=== PATIENT | female | born 1955 | race Caucasian/White ===

== ENCOUNTER 2016-10-11 21:23 | Observation (INO) | payer BC ==
[~2016-10-11] VITALS: Ht 154.9 cm; Wt 57.0 kg
[2016-10-11 21:53] LABS: HEMATOCRIT 38.9 % (36.0-46.0); MCH 29.6 PG (29.0-34.0); MCHC 34.7 G/DL (30.0-36.0); MCV 85.3 FL (83-99); MEAN PLAT.VOLUME 10.1 uM^3 (9.5-12.4); PLATELET COUNT 270 K/uL (156-360); RBC DIS.WIDTH-CV 12.7 % (11.8-14.6); RBC DIS.WIDTH-SD 39.2 % (39-53); RED BLOOD COUNT 4.56 M/uL (3.80-5.20); WHITE BLOOD COUNT 8.1 K/uL (4.1-10.2)
[2016-10-11 22:05] LABS: CHLORIDE 104 mEq/L (99-109); POTASSIUM 3.6 mEq/L (3.7-5.4); SODIUM 138 mEq/L (136-147)
[2016-10-11 22:07] LABS: GLUCOSE 128 mg/dL (70-99)
[2016-10-11 22:09] LABS: ANION GAP 10 MEQ/L (2-14); TOTAL BILIRUBIN 0.3 mg/dL (0.0-1.0)
[2016-10-11 22:11] LABS: ALKALINE PHOSPHATASE 63 IU/L (3-129); GFR ESTIMATE (CALCULATED) > 59 mL/min/
[2016-10-11 22:12] LABS: UREA NITROGEN (BUN) 10 mg/dL (9-23)
[2016-10-11 22:13] LABS: DIRECT BILIRUBIN 0.1 mg/dL (0.0-0.3)
[2016-10-11 22:14] LABS: LIPASE 21 U/L (1.0-51.0)
[2016-10-11 22:21] LABS: TROP-I INTERPRETATION NEGATIVE; TROPONIN-I < 0.01 ng/mL (0.0-0.30)
[2016-10-11] MEDS ORDERED: OMEPRAZOLE40 M1 PO (23:18)
[2016-10-11] MEDS ORDERED: LEVOTHYROXINE50 MCG PO (23:18)
[2016-10-11] MEDS ORDERED: ATORVASTATIN CA20 MG PO (23:18)
[2016-10-11] MEDS ORDERED: GLUCOSAMINE-CH1 EA44 PO (23:19)
[2016-10-11] MEDS ORDERED: ADVIL PM1 TABLET PO (23:19)
[2016-10-11] MEDS ORDERED: ONE-A-DAY ESSE1 EAC1 PO (23:19)
[2016-10-11] MEDS ORDERED: NAPROXEN SODIU550 M1 PO (23:20)
[2016-10-12 00:39] VITALS: BP 139/67
[2016-10-12 04:10] VITALS: BP 119/65
[2016-10-12 05:24] LABS: TROP-I INTERPRETATION NEGATIVE; TROPONIN-I < 0.01 ng/mL (0.0-0.30)
[2016-10-12 05:25] LABS: HDL CHOLESTEROL 44 MG/DL (Desirable>=50); LDL CHOLESTEROL 79 mg/dL (Desirable<100); NON-HDL CHOLESTEROL 87 mg/dL (Desirable<160); TOTAL CHOLESTEROL 131 mg/dL (Desirable<200); TRIGLYCERIDES 38 MG/DL (Normal: <150)
[2016-10-12 08:10] VITALS: BP 137/63
[2016-10-12 11:26] VITALS: BP 117/55
[2016-10-12 11:36] LABS: TROP-I INTERPRETATION NEGATIVE; TROPONIN-I < 0.01 ng/mL (0.0-0.30)
== END 2016-10-12 12:22 | disposition home or self-care (01) ==
LOC: EME → EDBD 21:23 → EME 21:23 → EDOF 23:31 → 5WEST 23:31 → EDOF 23:31 → 5WEST 10-12 00:28
PROVIDERS: Emergency Medicine; Physician Assistant Medical
DX: R07.89 Other chest pain (principal); R10.13 Epigastric pain; M25.512 Pain in left shoulder; K21.9 Gastro-esophageal reflux disease without esophagitis; E03.9 Hypothyroidism, unspecified; E78.5 Hyperlipidemia, unspecified; F41.9 Anxiety disorder, unspecified
CPT/HCPCS: 71020; 76705; 80048; 80061; 80076; 83690; 84484; 85027; 93005; 99281; 99285; G0378; J1200; J2405